=== PATIENT | male | born 2005 | race Caucasian/White ===

== ENCOUNTER 2024-02-26 17:06 | Observation (INO) ==
[2024-02-26 18:01] LABS: Basophils # (auto) 0.02 K/uL (0.00-0.20); Basophils % (auto) 0.2 %; Eosinophils # (auto) 0.13 K/uL (0.00-0.50); Eosinophils % (auto) 1.3 %; Hematocrit (blood only) 43.3 % (42.0-52.0); Hemoglobin 15.2 g/dl (14.0-18.0); Immature Granulocytes # (auto) 0.02 K/uL (0.01-0.20); Immature Granulocytes % (auto) 0.2 %; Lymphocytes # (auto) 2.13 K/uL (1.20-3.40); Lymphocytes % (auto) 20.7 %; Mean Corpuscular Hemoglobin 29.6 pg (25.0-34.0); Mean Corpuscular Hgb Conc 35.1 g/dL (32.0-36.0); Mean Corpuscular Volume 84.2 fL (80.0-100.0); Mean Platelet Volume 11.2 fL (9.4-12.4); Monocytes # (auto) 0.84 K/uL (0.11-0.59); Monocytes % (auto) 8.2 %; Neutrophils # (auto) 7.13 K/uL (1.40-6.50); Neutrophils % (auto) 69.4 %; Platelet Count 248 K/uL (130-400); RDW Coefficient of Variation 11.6 % (11.5-14.5); RDW Standard Deviation 35.3 fL (36.4-46.3); Red Blood Count 5.14 M/uL (4.70-6.10); White Blood Count 10.27 K/ul (4.8-10.8)
[2024-02-26 18:16] LABS: Albumin Globulin Ratio 1.7 (0.9-2); Albumin Level 4.6 gm/dl (3.4-5.0); BUN Creatinine Ratio 20.7 (10-20); Calcium 9.4 mg/dl (8.6-10.3); Creatinine Clr Calc Pharmacy 123.2 ml/min; Globulin 2.7 gm/dl (2.5-4.0); Potassium 3.9 mmol/L (3.5-5.1); Total Protein 7.3 gm/dl (6.0-8.3)
--- NOTE | 2024-02-26 18:16 | Emergency Department Note ---
History of Present Illness General Chief complaint: Ear Pain/Problem Stated complaint: R EAR PAIN,?ABSCESS Time Seen by Provider: 02/26/24 17:25 History of Present Illness Maximum Pain Intensity: 7 This is a 18-year-old male that presents to the emergency department via private vehicle with complaints of "right ear pain". The patient notes that for the past week he notes some drainage from preauricular ear pit that is a chronic finding. No recent trauma or injury. Patient notes that he was seen at [facility] and started on oral doxycycline p.o. twice daily this past Thursday. He has been compliant with the medicine. Over the past 1 to 2 days notes increasing redness, swelling to the right preauricular soft tissues. No fevers or chills. Patient otherwise is healthy. He denies any pertinent past medical history, surgeries or allergies. Past Med/Surg History Problem List (Updated 02/26/24 @ 23:05 by Rocco Pierce PA-C) Abnormal CT scan (Acute) Congenital pit, preauricular (Acute) Preauricular cellulitis (Acute) Ear pit Abscess of right external ear Social History Smoking Status: Never smoker Feels Safe at Home: Yes Review of Systems A total of 10 systems reviewed and were otherwise negative Physical Exam Vital Signs Vital Signs - 24 hr 02/26/24 17:21 02/26/24 21:10 02/26/24 22:42 Temperature 36.8 C Temperature Source Temporal Artery Scan Pulse Rate 86 Pulse Rate [Finger] 74 82 Pulse Rhythm [Finger] Regular Pulse Strength [Finger] Normal Respiratory Rate 14 16 16 Respiratory Effort / Characteristics Non-Labored Spontaneous Non-Labored Non-Labored Respiratory Depth Normal Normal Normal Blood Pressure 123/67 Blood Pressure [Right Arm] 131/80 136/85 Blood Pressure Mean 85 Blood Pressure Mean [Right Arm] 97 102 Pulse Oximetry 96 96 96 Oxygen Delivery Method Room Air Room Air Room Air Sepsis Recent Fever Within 48 Hours No Sepsis New/Unexplained Change in Mental Status No Sepsis Action Taken by Nursing No Action Required VITAL SIGNS - Vital signs and nursing notes were reviewed. Stable and afebrile. GENERAL -18-year-old male appearing his stated age who is in no acute distress. Communicates well with provider and answers questions appropriately. SKIN -overlying the preauricular soft tissues there is a tiny preauricular ear pit seen with no immediate erythema or edema however about half a centimeter to 1 cm anterior to this there is a vertically oriented erythematous and edematous and mildly fluctuant region that tracks superiorly into the hairline. The area is tender. No active drainage. HEAD - NC/AT. EYES - PERRL with EOMI bilaterally. Sclera anicteric. Palpebral conjunctiva pink and moist with no injection noted. EARS -bilateral preauricular ear pits noted. No pain elicited with palpation of the tragus bilaterally. External auditory canals without discharge or otorrhea. Tympanic membranes pearly cody without retraction or bulging. No fluid or purulent material visualized behind the TM. Handle of malleus, umbo, cone of light, pars tensa/flaccid all easily visualized. NOSE - Midline and without cyanosis. No epistaxis or purulent drainage noted. Septum midline without deviation or septal hematoma noted. MOUTH/OROPHARYNX - Without perioral cyanosis. Buccal mucosa pink and moist and without leukoplakia. Tongue midline with equal elevation of palate bilaterally. No tonsillar hypertrophy, erythema, or exudates noted. Good dentition noted. NECK - Neck with FROM. Supple to palpation. R anterior cervical lymphadenopathy noted. No nuchal rigidity. LUNGS - CTA CARDIAC - RRR EXTREMITIES - No clubbing or peripheral cyanosis. +5/5 strength noted in UE/LE bilaterally. NEUROLOGIC - Cranial nerves II through XII grossly intact. PSYCH - alert, oriented to pleasant on exam Course Administered Medications Discontinued Medications Sodium Chloride (Nss) 1,000 mls @ 999 mls/hr IV .Q1H1M ONE Stop: 02/26/24 21:40 Last Infusion: 02/26/24 22:11 Dose: Infused Documented By: Admin: 02/26/24 21:07 Dose: 999 mls/hr Documented By: RUSTY Ampicillin Sodium/Sulbactam Sodium (Unasyn) 3,000 mg in 100 mls @ 200 mls/hr IV NOW STA Stop: 02/26/24 21:09 Last Infusion: 02/26/24 21:41 Dose: Infused Documented By: Admin: 02/26/24 21:07 Dose: 200 mls/hr Documented By: RUSTY Ioversol (Optiray 320 100ml) 90 ml IV ONCE ONE Stop: 02/26/24 18:34 Last Admin: 02/26/24 18:34 Dose: 90 ml Documented By: BERTHA Medical Decision Making Laboratory Data 02/26/24 17:42 02/26/24 17:42 Lab Results 02/26/24 02/26/24 Range/Units 17:42 21:10 WBC 10.27 (4.8-10.8) K/ul RBC 5.14 (4.70-6.10) M/uL Hgb 15.2 (14.0-18.0) g/dl Hct 43.3 (42.0-52.0) % MCV 84.2 (80.0-100.0) fL MCH 29.6 (25.0-34.0) pg MCHC 35.1 (32.0-36.0) g/dL RDW Std Deviation 35.3 L (36.4-46.3) fL RDW Coeff of Kerri 11.6 (11.5-14.5) % Plt Count 248 (130-400) K/uL MPV 11.2 (9.4-12.4) fL Immature Gran % (Auto) 0.2 % Neut % (Auto) 69.4 % Lymph % (Auto) 20.7 % Buchanan % (Auto) 8.2 % Eos % (Auto) 1.3 % Baso % (Auto) 0.2 % Neut # (Auto) 7.13 H (1.40-6.50) K/uL Lymph # (Auto) 2.13 (1.20-3.40) K/uL Buchanan # (Auto) 0.84 H (0.11-0.59) K/uL Eos # (Auto) 0.13 (0.00-0.50) K/uL Baso # (Auto) 0.02 (0.00-0.20) K/uL Immature Gran # (Auto) 0.02 (0.01-0.20) K/uL Sodium 138 (136-145) mmol/L Potassium 3.9 (3.5-5.1) mmol/L Chloride 102 (98-107) mmol/L Carbon Dioxide 30 (21-32) mmol/L Anion Gap 6 (3-11) BUN 17 (6-23) mg/dl Creatinine 0.82 (0.6-1.4) mg/dl Est Cr Clr Drug Dosing 123.2 ml/min eGFR 128.97 BUN/Creatinine Ratio 20.7 H (10-20) Glucose 105 H (70-99(Fasting)) mg/dl Calcium 9.4 (8.6-10.3) mg/dl Total Bilirubin 1.0 (0.2-1.0) mg/dl AST 16 (13-39) U/L ALT 14 (7-52) U/L Alkaline Phosphatase 89 (34-104) U/L Total Protein 7.3 (6.0-8.3) gm/dl Albumin 4.6 (3.4-5.0) gm/dl Globulin 2.7 (2.5-4.0) gm/dl Albumin/Globulin Ratio 1.7 (0.9-2) Nasal Screen MRSA (PCR) Negative (Negative) Imaging Data Radiologist's Impression: Soft Tissue Neck CT 02/26/24 18:05 EXAM: CT soft tissue neck w con CLINICAL HISTORY: R preauricular edema, erythema, pain 90 ml optiray 320 x spot marker placed on area of interest. TECHNIQUE: CT scan of the neck was performed with the administration of intravenous contrast. Sagittal and coronal reconstructions were obtained. 90ml optray 320 was administered for post-contrast images. One of the following dose reduction techniques were utilized for this exam: Automated exposure control, adjustment of the mA and/or kV according to patient size, and use of iterative reconstruction. COMPARISON: None. FINDINGS: Soft Tissues: Few small right-sided preauricular subcutaneous collections measuring up to 1 x 2 cm, showing faintly enhancing hatfield. This causes focal contour bulge. Surrounding mild soft tissue thickening and fat smudging also noted. Nasopharynx: Hypertrophied nasopharyngeal soft tissue likely inflammatory. Oropharynx: Normal size and appearance. No masses or abnormal enhancement. Larynx and Hypopharynx: Normal appearance of the laryngeal structures. Vocal cords are normal in appearance and movement. No masses or abnormal enhancement. Thyroid Gland: Normal size and morphology. No nodules or masses. Normal enhancement post-contrast. Salivary Glands: Parotid, submandibular, and sublingual glands are normal in size and appearance. No evidence of sialadenitis or masses. Lymph Nodes: No pathologically enlarged cervical lymph nodes. Bilateral deep cervical lymph nodes measuring up to 1.3 cm likely inflammatory. Vascular Structures: Normal enhancement of the carotid arteries, jugular veins, and other major vessels post-contrast. No evidence of vascular malformations, aneurysms, or thrombosis. Bones: Normal appearance of the cervical spine and surrounding bony structures. No fractures, lytic or sclerotic lesions. Airway: Trachea and main bronchi are patent. No evidence of tracheal or bronchial stenosis or masses. IMPRESSION: 1. Few small right-sided preauricular subcutaneous collections measuring up to 1 x 2 cm, showing faintly enhancing hatfield, may represent abscess. 2. Surrounding mild inflammatory soft tissue thickening and fat smudging. 3. Bilateral deep cervical lymph nodes measuring up to 1.3 cm likely inflammatory. 4. Hypertrophied nasopharyngeal soft tissue likely inflammatory. 5. Clinical correlation is suggested. Electronically signed by Anastacio Montez 02-26-2024 7:53 PM MDM Narrative Patient was seen and evaluated as above in room D02b. Review was performed of triage nursing notes and vital signs. Patient presents today for evaluation of right preauricular pain, edema. Clinically there is a large amount of edema and erythema to the preauricular soft tissues. Fluctuance is also noted. There is bilateral preauricular ear pits also seen. Of note, patient has been on oral doxycycline since Thursday. Options of care were discussed with the patient. IV access was established. Labs were drawn.There is no leukocytosis or concerning anemia. No emergent metabolic disturbance. I discussed presentation with the on-call ENT specialist, Dr. Odonnell and we agreed to proceed with CT scan of the area. This was ordered with results as above. I then spoke with Dr. Odonnell again at 7:57 PM. Plan at this time is antibiotics and ENT follow-up on Thursday in his office. If symptoms worsen patient will require inpatient procedure. Will proceed with inpatient management for IV antibiotics and then transition to oral antibiotics. Case discussed with the hospitalist service. Please refer to further documentation regarding his stay. I do believe that IV antibiotics and hospitalization is needed at this time noting progression of symptoms, distribution of the infection despite oral antibiotics over the past several days. GCS: 15 In the evaluation and treatment of this patient the following differential diagnoses were entertained: Otitis media, otitis externa, mastoiditis, cellulitis, abscess, lymphadenopathy, parotitis, among others Impression & Plan Preauricular cellulitis, Congenital pit, preauricular, Abnormal CT scan Discharge Plan Visit Data Chief Complaint: Ear Pain/Problem Stated Complaint: R EAR PAIN,?ABSCESS ED Provider: [facility] ED Midlevel Provider: Rocco Pierce Discharge Problem: Preauricular cellulitis, Congenital pit, preauricular, Abnormal CT scan Patient Disposition: Admitted As Inpatient Condition: Good Discharge Instructions Interventions: ED Discharge Assessment Last Done: 02/26/24 22:43 Forms Stand Alone Forms: My [facility] Referrals Referrals: Alexx Gilbert DO [Primary Care Provider] -
[2024-02-26] MEDS: OPTIRAY 320 100ml IV ONE (18:34)
--- NOTE | 2024-02-26 19:53 | CT Scan Report ---
EXAM: CT soft tissue neck w con CLINICAL HISTORY: R preauricular edema, erythema, pain 90 ml optiray 320 x spot marker placed on area of interest. TECHNIQUE: CT scan of the neck was performed with the administration of intravenous contrast. Sagittal and coronal reconstructions were obtained. 90ml optray 320 was administered for post-contrast images. One of the following dose reduction techniques were utilized for this exam: Automated exposure control, adjustment of the mA and/or kV according to patient size, and use of iterative reconstruction. COMPARISON: None. FINDINGS: Soft Tissues: Few small right-sided preauricular subcutaneous collections measuring up to 1 x 2 cm, showing faintly enhancing hatfeild. This causes focal contour bulge. Surrounding mild soft tissue thickening and fat smudging also noted. Nasopharynx: Hypertrophied nasopharyngeal soft tissue likely inflammatory. Oropharynx: Normal size and appearance. No masses or abnormal enhancement. Larynx and Hypopharynx: Normal appearance of the laryngeal structures. Vocal cords are normal in appearance and movement. No masses or abnormal enhancement. Thyroid Gland: Normal size and morphology. No nodules or masses. Normal enhancement post-contrast. Salivary Glands: Parotid, submandibular, and sublingual glands are normal in size and appearance. No evidence of sialadenitis or masses. Lymph Nodes: No pathologically enlarged cervical lymph nodes. Bilateral deep cervical lymph nodes measuring up to 1.3 cm likely inflammatory. Vascular Structures: Normal enhancement of the carotid arteries, jugular veins, and other major vessels post-contrast. No evidence of vascular malformations, aneurysms, or thrombosis. Bones: Normal appearance of the cervical spine and surrounding bony structures. No fractures, lytic or sclerotic lesions. Airway: Trachea and main bronchi are patent. No evidence of tracheal or bronchial stenosis or masses. IMPRESSION: 1. Few small right-sided preauricular subcutaneous collections measuring up to 1 x 2 cm, showing faintly enhancing hatfield, may represent abscess. 2. Surrounding mild inflammatory soft tissue thickening and fat smudging. 3. Bilateral deep cervical lymph nodes measuring up to 1.3 cm likely inflammatory. 4. Hypertrophied nasopharyngeal soft tissue likely inflammatory. 5. Clinical correlation is suggested. Electronically signed by Anastacio Montez 02-26-2024 7:53 PM
--- NOTE | 2024-02-26 20:40 | History & Physical Report ---
Date of Service February 26, 2024 Assessment & Plan (1) Abscess of right external ear: (2) Ear pit: Plan Patient is a 18-year-old male with a past medical history of bilateral ear pits. He presents today and is being admitted for a right preauricular abscess needing IV antibiotics. ENT specialist Dr. Odonnell recommended the patient be started on IV antibiotics, if improved in a.m. 02/26 can discharge home and will be seen in the office on Thursday. If the abscess worsens, he will assess the patient inpatient to drain the abscess. #preauricular abscess/ chronic ear pits Patient with chronic bilateral ear pits, right side with drainage, erythema, swelling, pain Soft tissue neck CT showed small right sided preauricular subcutaneous collections, may represent abscess; along with surrounding inflammation of soft tissue and lymph nodes no leukocytosis, afebrile, VSS ER provider spoke with ENT who recommended IV ABX, abscess is not drainable at this time - If patient improves in a.m. 02/26 can discharge home and follow-up with Dr. Estrada in office Tuesday 02/28 - if patient worsens overnight, ENT will eval the patient in the morning and possibly drain the abscess IV Unasyn ordered Continue home doxycycline twice daily Tylenol as needed for pain Consider refer to Dr. Barrett regarding chronic bilateral ear pits VTE ppx: SCDs - low risk Diet: regular Dispo: med surg Admission and Anticipated Discharge Date Admission Date: 02/26/24 History of Present Illness Chief Complaint: ear pain Primary Care Provider: Alexx Gilbert DO Patient is a 18-year-old male with a past medical history of bilateral ear pits. He presents today and is being admitted for a right preauricular abscess needing IV antibiotics. ENT specialist Dr. Odonnell recommended the patient be started on IV antibiotics, if improved in a.m. 02/26 can discharge home and will be seen in the office on Thursday. If the abscess worsens, he will assess the patient inpatient to drain the abscess. Patient seen at bedside with his girlfriend present. He stated that he has chronic pits of bilateral ears that frequently have drainage. Over winter break the right side had a little bit more drainage than his usual and became puffy and red after. It frequently becomes puffy and red but resolves on its own. This time he noticed that it continued to swell and become painful. This has been going on for approximately a week. He went to the [facility] on Thursday and was started on doxycycline twice daily. This antibiotic did not seem to help as the abscess continue to worsen and he presented to the ER today. Patient denies fever, chills, dizziness, lightheadedness, sore throat, dyspnea, chest pain, hearing loss. He does not use nicotine products. He occasionally drinks alcohol. He denies any past medical history other than the ear pits. He does not take any home medications regularly. He wishes to be full code at this time. 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 Non-toxic appearing. HEENT- EOMI, mucous membranes moist. Hearing grossly intact. Heart-normal S1 and S2. No murmurs, rubs or gallops. Lungs-clear bilaterally, no respiratory distress, no accessory muscle use. Abdomen-normal bowel sounds and soft. No ascites noted. Non-tender. Extremities- no clubbing, cyanosis, or edema. Rheumatologic-normal range of motion. Psychiatric-normal affect. ENMT: Ears: + external ear abnormality (right preauricular swelling and erythema, tender to palpation); no hearing impairment, no TM abnormality and able to visualize TM (free of fluid) Results & Data Results & Data Vital Signs (Past 12 Hours) Vital Signs Temp Pulse Resp BP Pulse Ox O2 Del Method 02/26/24 17:21 36.8 C 86 14 123/67 96 Room Air Laboratory Results Reviewed CBC and CMP Diagnostic Findings reviewed soft tissue neck CT Medications Administered ED: 1L NSS bolus + Unasyn 3G IV Code Status & VTE Plan Code Status full VTE Prophylaxis Plan VTE Prophylaxis will be ordered: Yes Supervising Physician Co-Signing Physician Notes Attending addendum: I have physically seen this patient, have supervised the ANEESH's activities, and agree with the H&P unless as otherwise noted. Assessment and Plan: The patient is a 18-year-old male past medical history of bilateral ear pits, who presents to the emergency department with acute onset of right preauricular abscess needing IV antibiotics that began over the past few days. Preauricular abscess/chronic ear pits- Patient presents with worsening ear pits, right sided drainage, erythema swelling and pain CT of soft tissue of neck showed small right sided preauricular subcutaneous collections, which may represent abscesses, along with surrounding inflammation of soft tissue and lymph nodes. Patient will be admitted to hospital for IV antibiotics, and monitoring for possible need for drainage if no improvement Unasyn 3 g IV every 6 hours Follow culture sensitivity Continue home doxycycline 100 mg p.o. twice daily for potential MRSA Patient will follow-up with ENT as indicated Bilateral ear pits- Should consider assessment by Dr. Barrett in the outpatient setting PG Care Time/CCT Total # of Minutes Spent Total Time Spent with Patient: Total time spent is greater than 50% in coordination of care (as documented) at patient's floor/unit and/or counseling patient: Coding Level of Care Code 35616 INT INP/OBS CARE 2/55MIN Diagnoses Abscess of right external ear H60.01 Ear pit Q18.1
[2024-02-26] MEDS: AMPICILLIN/SULBACTAM SOD 3,000 MG/100 ML BAG IV STA (21:07)
[2024-02-26] MEDS: SODIUM CHLORIDE 0.9% 1,000 ML IV ONE (21:07)
[2024-02-26] MEDS ORDERED: ONDANSETRON INJ 2 MG/ML 2 ML VIAL IV PRN (23:46)
[2024-02-27] MEDS: DOXYCYCLINE HYCLATE 100 MG CAP PO SCH (00:11)
[2024-02-27] MEDS: MELATONIN 3 MG TAB PO PRN (00:11)
[2024-02-27] MEDS: AMPICILLIN/SULBACTAM SOD 3,000 MG/100 ML BAG IV SCH (04:00)
[2024-02-27 07:44] LABS: Basophils # (auto) 0.03 K/uL (0.00-0.20); Basophils % (auto) 0.4 %; Eosinophils # (auto) 0.15 K/uL (0.00-0.50); Hemoglobin 14.7 g/dl (14.0-18.0); Immature Granulocytes # (auto) 0.02 K/uL (0.01-0.20); Immature Granulocytes % (auto) 0.3 %; Lymphocytes # (auto) 1.81 K/uL (1.20-3.40); Lymphocytes % (auto) 23.9 %; Mean Corpuscular Hemoglobin 29.9 pg (25.0-34.0); Mean Corpuscular Volume 85.5 fL (80.0-100.0); Mean Platelet Volume 11.3 fL (9.4-12.4); Monocytes # (auto) 0.69 K/uL (0.11-0.59); Monocytes % (auto) 9.1 %; Neutrophils # (auto) 4.88 K/uL (1.40-6.50); Neutrophils % (auto) 64.3 %; Platelet Count 251 K/uL (130-400); RDW Coefficient of Variation 11.6 % (11.5-14.5); RDW Standard Deviation 35.8 fL (36.4-46.3); Red Blood Count 4.91 M/uL (4.70-6.10); White Blood Count 7.58 K/ul (4.8-10.8)
[2024-02-27 08:09] LABS: BUN Creatinine Ratio 17.9 (10-20); Calcium 9.5 mg/dl (8.6-10.3); Creatinine Clr Calc Pharmacy 130.3 ml/min; Potassium 4.5 mmol/L (3.5-5.1)
[2024-02-27] MEDS: ACETAMINOPHEN 325 MG TAB PO PRN (12:15)
--- NOTE | 2024-02-27 16:23 | Hospitalist Progress Note ---
Date of Service February 27, 2024 Assessment & Plan (1) Abscess of right external ear: (2) Ear pit: Plan Patient is a 18-year-old male with a past medical history of bilateral ear pits. Presents with worsening ear pain/abscess development. Was seen by [facility] and started on doxycycline BID. Soft tissue neck CT showed small right sided preauricular subcutaneous collections, may represent abscess; along with surrounding inflammation of soft tissue and lymph nodes. He is admitted for IV antibiotics and possible drainage with ENT. #preauricular abscess/ chronic ear pits Presenting with ear pain and abscess developments, CT with subcutaneous collection but nothing drainable on admission. No leukocytosis, however minimal improvement so far with IV Unasyn. Will continue and course of doxycycline. Discussed with ENT, Dr. Estrada - plan to continue IV antibiotic and possible bedside drainage AM 02/27 AM CBC and BMP VTE ppx: SCDs - low risk Dispo: continued inpatient stay, receiving IV abx Admission and Anticipated Discharge Date Admission Date: February 26, 2024 Supervising Physician Co-Signing Physician Notes PA Supervision Note: I did not personally see or examine the patient today, but I verified all vega points of MARAL Isidro's assessment and plan with the following exceptions/additions: None Subjective Patient seen sitting up in bed, states ear is maybe slightly better still very painful to touch eating and drinking without issues has not had issues with his ear pits before - never had to be on antibiotics for them prior. no recent travel, has not been swimming recently Review of Systems Review of Systems: All systems reviewed & are unremarkable except as noted in Subjective Physical Exam Physical Exam: General: NAD, VS as above HEENT: right preauricular swelling and erythema, tender to palpation. Resp: normal respiratory effort, lungs clear to auscultation CV: RRR, no murmur, Extremities: Moves all extremities, no edema Neuro: A&O x3, Results & Data Results & Data Vital Signs (Past 12 Hours) Vital Signs Temp Pulse Resp BP BP Pulse Ox O2 Del Method 02/27/24 15:32 98.1 F 70 16 125/75 97 Room Air 02/27/24 07:45 Room Air 02/27/24 07:35 97.9 F 83 14 108/68 96 Room Air Laboratory Results cbc and chemistry reviewed Diagnostic Findings CT neck reviewed PG Care Time/CCT Total # of Minutes Spent Total Time Spent with Patient: Total time spent is greater than 50% in coordination of care (as documented) at patient's floor/unit and/or counseling patient: Coding Level of Care Code 67170 SUB INP/OBS CARE 235MIN Diagnoses Abscess of right external ear H60.01 Ear pit Q18.1
[2024-02-28 06:55] LABS: Hematocrit (blood only) 43.1 % (42.0-52.0); Hemoglobin 14.8 g/dl (14.0-18.0); Mean Corpuscular Hemoglobin 29.6 pg (25.0-34.0); Mean Corpuscular Hgb Conc 34.3 g/dL (32.0-36.0); Mean Corpuscular Volume 86.2 fL (80.0-100.0); Mean Platelet Volume 11.5 fL (9.4-12.4); Platelet Count 251 K/uL (130-400); RDW Coefficient of Variation 11.6 % (11.5-14.5); RDW Standard Deviation 36.3 fL (36.4-46.3); White Blood Count 7.24 K/ul (4.8-10.8)
[2024-02-28 07:10] LABS: BUN Creatinine Ratio 23.4 (10-20); Calcium 9.6 mg/dl (8.6-10.3); Potassium 4.4 mmol/L (3.5-5.1)
[2024-02-28 07:57] VITALS: BP 110/66; PULSE 61; RESP 18; TEMP 97.7; O2SAT 96
[2024-02-28] MEDS ORDERED: LIDOCAINE 1%/EPINEPHRINE 1:100,000 50 ML VIAL INFIL ONE (08:51)
[2024-02-28] MEDS ORDERED: LIDOCAINE 1%/EPINEPHRINE 1:100,000 20 ML VIAL INFIL ONE (09:30)
--- NOTE | 2024-02-28 10:25 | ENT Consultation ---
Date of Consultation February 28, 2024 Assessment & Plan (1) Abscess of right external ear: (2) Congenital pit, preauricular: Plan 18M with a right preauricular pit complicated by a small abscess now s/p needle aspiration. Needle aspiration was performed (rather than I&D), with 2cc's of purulence aspirated, in order to decrease the amount of scar if he elects to get the preauricular pit/cyst removed. Discussion was had over the full surgical removal of the pit given the infection. Patient should fu in clinic and remain on antibiotics. 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 He was seen by S 3-4 days prior to presentation and given doxycycline. The pain, swelling worsened prompting presentation to the ED. In the ED he was afebrile, hemodynamically stable with a WBC of 10. A CT was performed which showed small right sided preauricular subcutaneous collections which may represent abscess. On my read, the CT was not rim-enhancing and appeared more phlegmonous than a fully formed abscess. Because of the lack of convincing abscess, the decision was made to not pursue needle aspiration in the ED. He was then admitted for IV antibiotics. On evaluation at bedside today (02/28/24) he is HDS and afebrile with a WBC of 7. He notes that his pain is similar to the last few days. His preauricular pit has not been infected before. Allergies Allergy/AdvReac Type Severity Reaction Status Date / Time No Known Allergies Allergy Unverified 02/26/24 23:46 Home Medications Medication Instructions Recorded Confirmed Type amoxicillin 875 mg-potassium 1 tab PO BID #16 tabs 02/28/24 Rx clavulanate 125 mg tablet Patient History Social History Smoking Status: Never smoker Hx Alcohol Use: Yes Alcohol type: beer Hx Substance Use: No Preferred Language: Fijian Communication Ability: Effective Swimming Pool Serviceperson Required: No Beliefs That Will Affect Care: None Current Living Situation: Other Current Living Situation Comment: roommates at [employer] Feels Safe at Home: Yes Safety Concerns: Feels Safe At This Time Assistive Devices: None Review of Systems Review of Systems: per HPI Physical Exam Physical Exam: Well appearing comfortable male Edema, erythema,and tenderness of the right preauricular area without purulence from the preauricular pit. The area is now soft and fluctuant CN VII intact Procedure: -After discussion over the risks, benefi ts, and reasons for needle aspiration verbal consent was obtained -1cc of 1% lidocaine with 1:100,000 epin ephrine was injected around the right preauricular area -After an appropriate time to allow the local to work, an 18g needle was then inserted and 2cc of purulence was aspirated. -The purulence was sent in a culture for analysis -The patient tolerated the procedure wel l and there were no complications Results & Data Vital Signs (Past 12 Hours) Vital Signs Temp Pulse Resp BP Pulse Ox O2 Del Method 02/28/24 07:56 36.5 C 61 18 110/66 96 Room Air PG Care Time/CCT Total # of Minutes Spent Total Time Spent with Patient: Total time spent is greater than 50% in coordination of care (as documented) at patient's floor/unit and/or counseling patient: [place] [address] IN/OBS CONSULT LVL 2,35M Patient Type New Diagnoses Abscess of right external ear H60.01 Congenital pit, preauricular Q18.1
--- NOTE | 2024-02-28 11:45 | Discharge Summary ---
Discharge Summary Date of Service February 28, 2024 Principal Dx & Hospital Course #1 = Principal Diagnosis (1) Abscess of right external ear: (2) Ear pit: Plan Patient is a 18-year-old male with a past medical history of bilateral ear pits. Presents with worsening ear pain/abscess development. Was seen by [facility] and started on doxycycline BID. Soft tissue neck CT showed small right sided preauricular subcutaneous collections, may represent abscess; along with surrounding inflammation of soft tissue and lymph nodes. He is admitted for IV antibiotics and possible drainage with ENT. #preauricular abscess/ chronic ear pits Presenting with ear pain and abscess developments, CT with subcutaneous collection but nothing drainable on admission. Discussed with ENT, Dr. Estrada - bedside drainage 02/27, culture sent. Okay for discharge home with PO augmentin BID, follow up outpatient 03/02 Dispo: discharge to home today Mother updated by phone 02/27 Notes For Next Care Provider ENT follow up Admission HPI Per Admitting Provider Patient is a 18-year-old male with a past medical history of bilateral ear pits. He presents today and is being admitted for a right preauricular abscess needing IV antibiotics. ENT specialist Dr. Odonnell recommended the patient be started on IV antibiotics, if improved in a.m. 02/26 can discharge home and will be seen in the office on Thursday. If the abscess worsens, he will assess the patient inpatient to drain the abscess. Patient seen at bedside with his girlfriend present. He stated that he has chronic pits of bilateral ears that frequently have drainage. Over winter break the right side had a little bit more drainage than his usual and became puffy and red after. It frequently becomes puffy and red but resolves on its own. This time he noticed that it continued to swell and become painful. This has been going on for approximately a week. He went to the [facility] on Thursday and was started on doxycycline twice daily. This antibiotic did not seem to help as the abscess continue to worsen and he presented to the ER today. Patient denies fever, chills, dizziness, lightheadedness, sore throat, dyspnea, chest pain, hearing loss. He does not use nicotine products. He occasionally drinks alcohol. He denies any past medical history other than the ear pits. He does not take any home medications regularly. He wishes to be full code at this time. Discharge Exam General: NAD, VS as above HEENT: right preauricular area covered with dressing after I&D, dressing c/d/i Resp: breathing unlabored CV: well perfused Extremities: Moves all extremities, no edema Neuro: A&O x3, Discharge Plan Discharge Items Patient Disposition: Home - Self-Care Reason For Visit: PREAURICULAR ABSCESS Discharge Diagnosis: Ear [place] infection Condition on Discharge: Good Activity: Resume your previous activity Driving/Machine Use: No limitations Weightbearing: Full weightbearing Non-emergency contact: Primary Care Provider and Specialist Call non-emergency contact if: you have any medication questions and your symptoms worsen Follow-up/Referrals: Alexx Gilbert DO [Primary Care Provider] - Taiwo Odonnell MD [Physician] - (follow up Thursday 03/02 ) Diet: Regular Addtl Attending Provider Instructions: Mr. Cm, You were hospitalized after infection of you ear pits. You were given IV antibiotics and had the area drained with ENT, Dr. Odonnell. You will continued on oral antibiotics, Augmentin. Take the first dose tonight, take this with food. You will follow up with Dr. Estrada on Thursday. If anything is getting worse before then please call the ENT office and you will be seen sooner. Please avoid drinking alcohol and smoking while your wound is still healing. Keep the wound clean and dry. Do not submerge/take baths while the wound is still healing. You can use tylenol and ibuprofen for pain as needed. Please follow the instructions on the bottle. CONTACT YOUR PRIMARY CARE PROVIDER if you experience any of the following: Shortness of breath or difficulty breathing Fevers or chills Feeling tired with normal activity or experiencing dizziness or fainting Difficulty following your treatment plan, or difficulty taking medications CALL 911 OR GO TO THE EMERGENCY DEPARTMENT if you experience any of the following: Severe abdominal pain or nausea/vomiting Severe chest pain, or chest pain that radiates (moves) to your jaw or arm Sudden, severe shortness of breath or difficulty breathing Thank you for allowing us to participate in your care. Pending Studies at Discharge: Yes (wound culture ) Stand-Alone Forms: My [employer], Smoking Cessation Medications and DC Order Prescriptions: New amoxicillin-pot clavulanate 875-125 mg tablet 1 tab PO BID Qty: 16 0RF Rx Instructions: take with food Discharge Orders: Discharge Order (Routine); Ordered 02/28/24 Ordered By: Manda Isidro Admission Data Admit Date/Time: 02/26/24 20:55 Attending Provider: Trace Epperson Admit Provider: Todd Granda Primary Care Provider: Alexx Gilbert Other Providers: Todd Granda; Taiwo Odonnell Other Interventions: Discharge Summary Assessment (RN) Last Done: 02/28/24 11:51 Hospital Stay Data Consultations 02/26/24 20:41 ED Decision to Admit Stat 02/27/24 19:09 Consult Otolaryngology (Head and Neck) Routine Diagnostic Imagining Performed 02/26/24 18:05 CT soft tissue neck w con Stat Pending Results Patient Have Any Pending Studies at Discharge: Yes (wound culture ) Discharge Instructions Given to Patient (Per Discharging Provider) Mr. Cm, You were hospitalized after infection of you ear pits. You were given IV antibiotics and had the area drained with ENT, Dr. Odonnell. You will continued on oral antibiotics, Augmentin. Take the first dose tonight, take this with food. You will follow up with Dr. Estrada on Thursday. If anything is getting worse before then please call the ENT office and you will be seen sooner. Please avoid drinking alcohol and smoking while your wound is still healing. Keep the wound clean and dry. Do not submerge/take baths while the wound is still healing. You can use tylenol and ibuprofen for pain as needed. Please follow the instructions on the bottle. CONTACT YOUR PRIMARY CARE PROVIDER if you experience any of the following: Shortness of breath or difficulty breathing Fevers or chills Feeling tired with normal activity or experiencing dizziness or fainting Difficulty following your treatment plan, or difficulty taking medications CALL 911 OR GO TO THE EMERGENCY DEPARTMENT if you experience any of the following: Severe abdominal pain or nausea/vomiting Severe chest pain, or chest pain that radiates (moves) to your jaw or arm Sudden, severe shortness of breath or difficulty breathing Thank you for allowing us to participate in your care. Total Time Total Time Spent Total Time Spent (In Minutes): Time spent day of discharge 25 minutes including direct patient care, medication reconciliation, documentation, review of labs and images, and coordination of care. Coding Level of Care Code 93507 IN/OBS DISCH 30 MIN/LESS Diagnoses Abscess of right external ear H60.01 Ear pit Q18.1
[2024-02-28] MEDS: LIDOCAINE 1%/EPINEPHRINE 1:100,000 50 ML VIAL INFIL SCH (12:17)
== END 2024-02-28 12:48 | disposition home or self-care (01) ==
LOC: 3N 17:06 → ED 17:06 → SUATTDRO 20:55 → 3N 22:43